=== PATIENT | male | born 1950 | race Caucasian/White ===

== ENCOUNTER → 2019-11-13 07:53 | Outpatient (CLI) | payer MEDICARE, SELFPAY ==
--- NOTE | 2019-11-13 | DI.RAD.S_ITS ---
PROCEDURE: XR KNEE RT 3V INDICATIONS: RIGHT KNEE PAIN TECHNIQUE: 3 views of the knee were acquired. COMPARISON: None. FINDINGS: Bones: No fractures or dislocations. No suspicious bony lesions. There is mild and lateral medial femorotibial joint space narrowing seen, with associated remodeling changes including subchondral sclerosis and osteophyte formation along the jointline. On the sunrise view, there is moderate patellofemoral joint space narrowing seen. Osteophyte formation can be seen along the margins of the patella. Soft tissues: There is a moderate joint effusion. No suspicious soft tissue calcifications. IMPRESSION: A moderate joint effusion is seen. Tricompartmental degenerative change is seen, which is most prominent involving the patellofemoral compartment. If it would be helpful for clinical management decision making, please consider a dedicated knee MRI for further evaluation (assuming that there is no contraindication). Dictated by: Barron Liu M.D. on 11/13/2019 at 8:33 Approved by: Barron Liu M.D. on 11/13/2019 at 8:34
== END ==
PROVIDERS: PCP Family Medicine; Referring Provider Family Medicine; Visit Provider Family Medicine
DX: M25.561 Pain in right knee (principal); M25.461 Effusion, right knee
CPT/HCPCS: 73562

== ENCOUNTER → 2020-01-28 11:54 | Outpatient (CLI) | payer MEDICARE, SELFPAY ==
--- NOTE | 2020-01-28 | DI.US.S_ITS ---
PROCEDURE: US ABDOMEN LIMITED INDICATIONS: ABNORMAL LFTS; AAA SCREEN TECHNIQUE: Real-time focused scanning was performed of the abdomen, with image documentation. COMPARISON: None. FINDINGS: The liver demonstrates normal size and echogenicity. Within the left lobe of the liver laterally, there is a target appearing lesion, with a hypoechoic rim that measures 1.9 x 1.4 x 1.9 cm. The main portal vein measures normal size at 1.3 cm and is patent, demonstrating hepatopetal flow. No findings of gallstones or sludge are seen. The gallbladder wall is not thickened, measuring 3 mm or less. No specific pericholecystic fluid is seen. The sonographic Swift sign is negative. There is no biliary dilatation, the common bile duct measures 2 mm. No significant pancreatic abnormality is seen on these images. The proximal aorta is not seen. The mid aorta measures 1.6 cm. The distal aorta measures 1.4 cm. The right common iliac artery measures 1.1 cm and the left common iliac artery measures 1.2 cm. IMPRESSION: There is a 1.9 cm target appearing mass within the left lobe of the liver. Metastatic disease is suspected. Please correlate with known patient history. For further evaluation, a dedicated liver MRI (without and with contrast) is suggested (assuming that there is no contraindication to MRI). Negative for abdominal aortic aneurysm. The gallbladder demonstrates a normal sonographic appearance. No biliary dilatation is seen. Dictated by: Barron Liu M.D. on 01/28/2020 at 13:47 Approved by: Barron Liu M.D. on 01/28/2020 at 13:48
== END ==
PROVIDERS: PCP Family Medicine; Referring Provider Family Medicine; Visit Provider Family Medicine
DX: Z13.6 Encounter for screening for cardiovascular disorders (principal); R79.89 Other specified abnormal findings of blood chemistry; R16.0 Hepatomegaly, not elsewhere classified
CPT/HCPCS: 76705

== ENCOUNTER → 2020-02-04 09:05 | Outpatient (CLI) | payer MEDICARE, SELFPAY ==
--- NOTE | 2020-02-04 | DI.MRI.S_ITS ---
PROCEDURE: MR ABDOMEN WO/W CON INDICATIONS: OTHER SPECIFIED DISEASE OF THE LIVER TECHNIQUE: Coronal HASTE, axial 2D FLASH in- and [id number]-arond; axial breath-hold T2 FSE. Dynamic axial VIBE during the administration of contrast; post-contrast coronal VIBE or 2D FLASH with fat saturation from the hepatic dome to the iliac crests. Optional diffusion weighted imaging and ADC may be performed. COMPARISON: [facility], , ABDOMEN LIMITED, 01/28/2020, 12:08. FINDINGS: Image quality: Excellent. Lung bases: No basal pleural effusions. Heart size is normal. Solid organs: Liver is normal in size and enhancement except within the left lateral hepatic segment approximately centered 2.2 cm leftward from the fissure for the falciform ligament where a 1.5 cm diameter slightly enhancing rounded structure can be seen without appreciable mass effect on adjacent structures. This cannot be accurately detected on T2 and diffusion-weighted imaging pulse sequences. It is best seen on early postcontrast fat suppressed T1 scanning series 13, image 35. Gallbladder appears normal . Biliary system is non dilated. Pancreas is normal in morphology. Spleen is normal in size and enhancement. No adrenal nodules. Both kidneys demonstrate normal size and enhancement, without hydronephrosis. Nodes and vessels: No retroperitoneal or mesenteric adenopathy by size criteria. Aorta and inferior vena cava are normal in size. Bowel and peritoneum: Unenhanced bowel loops are normal in caliber. No free fluid. Bones and soft tissues: No ventral hernias. Bone marrow is normal in overall signal. IMPRESSION: The rounded hepatic 1.5 cm subcapsular left lateral hepatic segment nodule shows homogeneous contrast enhancement and potentially could represent an atypical hemangioma. It is accurately seen by ultrasound scanning. Follow-up by ultrasound could be performed in 3 months, 3 additional months thereafter, and 6 months thereafter assuming stability of appearance over time. Alternatively, a tagged red blood cell hemangioma scan with SPECT imaging could be utilized at this time. A nuclear medicine PET-CT scan also could be utilized for more accurate characterization of the structure and possibly to detect alternative site of isotope uptake if this in fact were to represent a focus of hepatic metastatic disease. Dictated by: Leodan Joseph M.D. on 02/04/2020 at 10:44 Approved by: Leodan Joseph M.D. on 02/04/2020 at 10:55
== END ==
PROVIDERS: PCP Family Medicine; Referring Provider Family Medicine; Visit Provider Family Medicine
DX: K76.89 Other specified diseases of liver (principal)
CPT/HCPCS: 74183

== ENCOUNTER → 2020-06-01 10:17 | Outpatient (CLI) | payer MEDICARE, SELFPAY ==
[2020-06-01] MEDS: COVID-19 VACC, Ad26(JANSSEN)/PF 0.5 ML IM (10:26)
== END ==
PROVIDERS: PCP Family Medicine; Visit Provider Internal Medicine
DX: Z23 Encounter for immunization (principal)
CPT/HCPCS: 0031A; 91303

== ENCOUNTER → 2020-07-30 08:03 | Outpatient (CLI) | payer MEDICARE, SELFPAY ==
--- NOTE | 2020-07-30 | DI.US.S_ITS ---
PROCEDURE: US ABDOMEN COMPLETE INDICATIONS: LEFT LOBE LIVER MASS TECHNIQUE: Real-time scanning was performed of the abdominal and retroperitoneal organs, with image documentation. COMPARISON: [facility], MR, MR ABDOMEN WO/W CON, 02/04/2020, 9:30. [facility], US, US ABDOMEN LIMITED, 01/28/2020, 12:08. FINDINGS: Liver: Liver is normal in size. Within the left lobe of the liver, there is again seen a hypoechoic mass. On the current study, this measures 1.9 x 1.5 x 1.8 cm, which is unchanged from the prior when it measured 1.9 x 1.4 x 1.9 cm. A 6 mm nonshadowing hyperechoic lesion is seen within the left lobe medially. The main portal vein demonstrates normal size. Gallbladder: No findings of gallstones or sludge are seen. The gallbladder wall is not thickened, measuring 3 mm or less. No specific pericholecystic fluid is seen. The sonographic Swift sign is negative. Biliary ducts: Intrahepatic bile ducts are non-dilated. Extrahepatic bile duct caliber measures 5 mm. Normal is 6-7 mm or less in diameter, or 10 mm or less post-cholecystectomy. Pancreas: Visualized portions of the pancreas are sonographically normal. Spleen: The spleen is minimally enlarged, measuring 13.1 cm. Kidneys: Kidneys are normal in size and echotexture. Right kidney measures 11 cm long; left kidney measures 10.4 cm long. No hydronephrosis. No solid masses. Within the left mid kidney, there is a calcified vessel versus a nonobstructing stone seen that measures 1-2 mm. Aorta: Visualized aorta is normal in caliber at less than 3 cm. Iliacs: Proximal common iliac arteries are normal in caliber at less than 2.5 cm. IVC: Intrahepatic inferior vena cava is patent. Miscellaneous: No free abdominal fluid. IMPRESSION: There is a stable 1.9 cm hypoechoic mass seen within the liver. The stability since the prior ultrasound 01/28/2020 is reassuring for a benign process, although not diagnostic. Continued follow-up is recommended, with a dedicated ultrasound in approximately 6 months. Incidental note is made of: Likely 6 mm liver hemangioma Minimal splenomegaly Calcified vessel versus nonobstructing right kidney stone Dictated by: Barron Liu M.D. on 07/30/2020 at 8:46 Approved by: Barron Liu M.D. on 07/30/2020 at 8:51
== END ==
PROVIDERS: PCP Family Medicine; Referring Provider Family Medicine; Visit Provider Family Medicine
DX: K76.89 Other specified diseases of liver (principal)
CPT/HCPCS: 76700

== ENCOUNTER → 2021-09-29 10:40 | Outpatient (CLI) | payer MEDICARE, SELFPAY | PROVIDERS: PCP Family Medicine; Referring Provider Family Medicine; Visit Provider Family Medicine | DX: Z13.820 Encounter for screening for osteoporosis (principal); M85.88 Other specified disorders of bone density and structure, other site | CPT/HCPCS: 77080 ==

== ENCOUNTER → 2021-10-14 10:34 | Outpatient (CLI) | payer MEDICARE, SELFPAY ==
[2021-10-14 11:12] LABS: Add Manual Diff / Slide Review NO; Basophils Absolute Auto 100 /uL (0-100); Basophils Percent Auto 1.1 % (0-2); Eosinophils Absolute Auto 200 /uL (0-450); Eosinophils Percent Auto 2.3 % (2-4); Hematocrit 36.2 % (41-53); Hemoglobin 12.8 g/dL (13.5-17.5); Lymphocytes Absolute Auto 900 /uL (1100-4500); Lymphocytes Percent Auto 10.5 % (25-40); Mean Corpuscular HGB Conc 35.3 % (30-36); Mean Corpuscular Hemoglobin 34.5 PG (26-34); Mean Corpuscular Volume 97.9 fL (80-100); Monocytes Absolute Auto 900 /uL (0-900); Monocytes Percent Auto 11.1 % (3-14); Neutrophils Absolute Auto 6200 /uL (1500-7000); Platelet Count 166 X10^3/uL (150-400); White Blood Cell Count 8.2 X10^3/uL (4.5-11.0)
[2021-10-14 11:13] LABS: INR 1.4 (0.9-1.3); Prothrombin Time 15.4 SECONDS (10.1-12.7)
[2021-10-14 14:23] LABS: Alanine Aminotransferase 37 IU/L (<50); Albumin 3.5 g/dL (3.5-5.0); Albumin Globulin Ratio 0.8 (1.0-2.8); Alkaline Phosphatase 110 U/L (38-126); Aspartate Aminotransferase 64 IU/L (17-59); BUN Creatinine Ratio 19.3 (6-22); Bilirubin Total 1.5 mg/dL (0.2-1.3); Blood Urea Nitrogen 23 mg/dL (9-20); Calcium 8.5 mg/dL (8.4-10.2); Carbon Dioxide 25 mmol/L (22-32); Chloride 108 mmol/L (98-107); Estimated Glomerular Filt Rate > 60 mL/min (>60); Globulin 4.3 g/dL (1.7-4.1); Glucose 106 mg/dL (80-110); HEMOLYSIS < 15 (0-50); Potassium 3.8 mmol/L (3.4-5.1); Sodium 138 mmol/L (137-145); Total Protein 7.8 g/dL (6.3-8.2)
== END ==
PROVIDERS: PCP Family Medicine; Referring Provider Internal Medicine Gastroenterology; Visit Provider Internal Medicine Gastroenterology
DX: C22.0 Liver cell carcinoma (principal)
CPT/HCPCS: 36415; 80053; 85025; 85610

== ENCOUNTER → 2023-02-21 16:42 | Outpatient (ROUT) | payer MEDICARE, SELFPAY ==
[2023-02-21 17:14] LABS: Appearance Urine UA CLEAR; Bilirubin Urine UA NEGATIVE (NEGATIVE); Color Urine UA YELLOW; Glucose Urine UA NEGATIVE (Negative); Ketones Urine UA NEGATIVE (NEGATIVE); Leukocyte Esterase Urine UA 2+ (NEGATIVE); Nitrite Urine UA NEGATIVE (Negative); Occult Blood Urine UA 2+ (Negative); Protein Urine UA 2+ (Negative); Specific Gravity Urine UA 1.025 (1.000-1.035); Urobilinogen Urine UA 0.2 E.U./dL (0.2); pH Urine UA 5.5 (4.5-8.0)
[2023-02-21 17:36] LABS: Bacteria Urine Few (2-10); Culture Indicated Urine Specimen Cultured; Hyaline Casts Urine 5-10/LPF; RBC Urine 5-10/HPF (0-5/HPF); Squamous Epithelial Cell Urine 0-1 /HPF (0-5/HPF); WBC Urine 30-100/HPF (0-5/HPF); White Blood Cell Casts Urine 1-5/LPF
== END ==
PROVIDERS: PCP Family Medicine; Visit Provider Urology
DX: N20.0 Calculus of kidney (principal)
CPT/HCPCS: 81001; 87086

== ENCOUNTER 2024-09-27 08:53 | Emergency (ER) | payer MEDICARE, SELFPAY ==
[2024-09-27] VITALS (9 sets, daily range): BP systolic 114–153; BP diastolic 75–88; PULSE 93–113; RESP 4–25; TEMP 36.5; O2SAT 86–98
--- NOTE | 2024-09-27 09:29 | DI.RAD.S_ITS ---
PROCEDURE: XR CHEST 1V INDICATIONS: altered mental status TECHNIQUE: One view of the chest was acquired. COMPARISON: Chest x-ray 08/22/2024 FINDINGS: Increased moderate right mid and lower hemithorax consolidation commonly representing a combination of pleural effusion, atelectatic change, alveolar opacification/consolidation, pneumonia or other process. Cannot exclude underlying right lung mass given the numerous, too numerous to count bilateral pulmonary nodules suspected metastases. Peribronchial thickening and patchy opacities left mid and lower hemithorax as well. Right-sided Port-A-Cath with distal tip distal superior vena cava. No gross pneumothorax. IMPRESSION: Increased right mid and lower hemithorax consolidation as discussed above. Diffuse metastases similar to the prior exam. Peribronchial thickening patchy opacities right greater than left progressed. Follow-up is needed. CT chest could be performed Dictated by: Andres Campoverde M.D. on 09/27/2024 at 11:06 Approved by: Andres Campoverde M.D. on 09/27/2024 at 11:26
--- NOTE | 2024-09-27 10:00 | EKG_ITS ---
[address] [address] Test Date: 2024-09-27 Pat Name: Man Judd Department: [facility] Room: Gender: Male [employer] Dancer: RAFAELA : 1950 Requested By: Order Number: [id number] Reading MD: Kamar Rose MD Measurements Intervals [place] Rate: 112 P: 52 WV: 140 QRS: 36 QRSD: 66 T: 54 QT: 328 QTc: 447 Interpretive Statements Sinus tachycardia Nonspecific T wave abnormality Electronically Signed On 09-27-2024 12:16:19 PDT by Kamar Rose MD
--- NOTE | 2024-09-27 10:29 | DI.CT.S_ITS ---
PROCEDURE: CT HEAD/BRAIN WO CON INDICATIONS: ams TECHNIQUE: Noncontrast 4.5 mm thick angled axial sections acquired from the foramen magnum to the vertex, with coronal and sagittal reformats. For radiation dose reduction, the following was used: automated exposure control, adjustment of mA and/or kV according to patient size. COMPARISON: None. FINDINGS: Image quality: Diagnostic. CSF spaces: Basal cisterns are patent. Small left subdural hematoma. Small right subdural hematoma, right subarachnoid hemorrhage. The ventricles are symmetric in size and shape. Brain: There is a small hemorrhagic parenchymal focus in the inferior left temporal lobe which is present on coronal image 23 of series 4 and axial image 9 of series 2. It measures approximately 1.1 x 2.1 x 1.1 cm. There is associated vasogenic edema. There is no significant mass effect on the left lateral ventricle. There is also a small left temporal subdural hematoma measuring 4 mm in thickness on axial image 14 of series 2. There is a small right temporal subdural hematoma which on image 13 of series 2 measures 0.6 cm. There is a small right frontal subdural hematoma which on image 11 of series 2 measures 1.0 cm focally. There is associated subarachnoid hemorrhage subjacent to the subdural hematoma. There is cerebral volume loss, with resultant ventricular and sulcal prominence. There are periventricular and deep white matter chronic small vessel ischemic changes. There is intracranial internal carotid artery atherosclerosis. Skull and face: There is a right-sided skull fracture which involves the right mastoids. Reference image 9 of series 3. It extends to the right lateral temporal occipital region. Reference image 13 of series 3. Sinuses: Visualized sinuses and mastoids are clear. IMPRESSION: 1. There is definite evidence of significant intracranial trauma. 2. There is a nondisplaced right skull fracture which involves the right mastoids and posterior lateral temporal occipital region. 3. There are 3 focal areas of small subdural hematoma, left temporal and right temporal and right frontal. 4. Small subarachnoid hemorrhage in the right frontal region. 5. Small left temporal parenchymal hematoma. Comment: Findings were discussed with Dr. Wilcox on 09/27/2024 at 1103 hours Dictated by: Canelo Crews M.D. on 09/27/2024 at 10:56 Approved by: Canelo Crews M.D. on 09/27/2024 at 11:06
[2024-09-27 10:32] LABS: Add Manual Diff / Slide Review NO; Hematocrit 27.7 % (41-53); Hemoglobin 9.0 g/dL (13.5-17.5); Lymphocytes Absolute Auto 200 /uL (1100-4500); Mean Corpuscular HGB Conc 32.4 % (30-36); Mean Corpuscular Hemoglobin 26.3 PG (26-34); Mean Corpuscular Volume 81.1 fL (80-100); Platelet Count 228 X10^3/uL (150-400)
[2024-09-27 10:41] LABS: Lactate (Lactic Acid) 1.5 mmol/L (0.7-2.1)
[2024-09-27 10:43] LABS: Alanine Aminotransferase 25 IU/L (<50); Albumin 3.0 g/dL (3.5-5.0); Albumin Globulin Ratio 1.0 (1.0-2.8); Alkaline Phosphatase 295 U/L (38-126); Ammonia (NH3) < 9 umol/L (9-30); Blood Urea Nitrogen 26 mg/dL (9-20); Calcium 8.6 mg/dL (8.4-10.2); Carbon Dioxide 24 mmol/L (22-32); Chloride 100 mmol/L (98-107); Creatine Kinase 29 U/L (55-170); Estimated Glomerular Filt Rate 59 mL/min (>60); Ethanol (ETOH) < 10 mg/dL (<10); Globulin 3.1 g/dL (1.7-4.1); Glucose 168 mg/dL (70-99); HEMOLYSIS < 15 (0-50); Potassium 3.9 mmol/L (3.4-5.1); Sodium 134 mmol/L (137-145); Total Protein 6.1 g/dL (6.3-8.2)
[2024-09-27 10:44] LABS: INR 1.3 (0.9-1.3); Prothrombin Time 14.3 SECONDS (9.4-12.5)
[2024-09-27 10:47] LABS: Acetaminophen < 10 ug/mL (10-30); PTT Partial Thromboplastin Tim 25 SECONDS (25.1-36.5); Salicylate < 1.0 mg/dL (<20)
--- NOTE | 2024-09-27 10:50 | PC.NURSE ---
Pt sats dropping to 87% on RA. Placed on 2L per NC. Dr Wilcox notified.
[2024-09-27 10:53] LABS: Troponin I 0.065 ng/mL (0.01-0.034)
[2024-09-27 10:58] LABS: Procalcitonin 3.61 ng/mL (<0.5)
[2024-09-27 11:05] LABS: Anisocytosis 2+; Hypochromasia 1+
[2024-09-27 11:09] LABS: Base Excess VBG 0.8 mmol/L (0-4); HCO3 VBG 25 mmol/L (24-28); Oxygen Saturation VBG 89 % (70-75); PCO2 VBG 35.0 mmHg (45-50); PO2 VBG 53 mmHg (35-45); Total CO2 VBG 23 mmol/L (24-29); pH VBG 7.46 (7.33-7.43)
--- NOTE | 2024-09-27 11:09 | PC.NURSE ---
Pt placed in C collar per MD order.
--- NOTE | 2024-09-27 11:13 | DI.CT.S_ITS ---
PROCEDURE: CT CHEST ABD PEL WO CON INDICATIONS: trauma? TECHNIQUE: After the administration of oral contrast, 5 mm thick sections acquired from the lung apices to the symphysis pubis. 5 mm thick coronal and sagittal reformats acquired, with additional 7 mm coronal MIP reformats through the lungs. For radiation dose reduction, the following was used: automated exposure control, adjustment of mA and/or kV according to patient size. COMPARISON: No prior CT chest for comparison. Comparison can be made to prior chest x-ray 08/22/2024. FINDINGS: Image quality: Diagnostic. Some images are limited by beam hardening artifacts, patient motion or other artifacts. CHEST: Numerous, too numerous to count bilateral pulmonary nodules, metastases measuring up to 2.5 cm in the left lower lobe posterior basal similar to the prior chest x-ray. Increased large right pleural effusion with associated compressive atelectatic changes throughout the right middle lobe and right lower lobe near complete collapse right lower lobe. Peribronchial thickening and patchy opacities in the right upper lobe greater than left upper lobe and left lower lobe , some of which may be related expiratory result however bronchitis, viral infection or other process should be considered. Osteopenia and moderate degenerative changes of the thoracic spine with mild decreased height of several mid thoracic vertebral bodies. Right jugular central venous catheter with distal tip distal superior vena cava/right atrial junction. Moderate calcifications of the coronary arteries, aortic valve, mitral valve, aortic arch and descending aorta. Several moderately enlarged bilateral lower neck, mediastinal, bilateral paratracheal, anterior tracheal, lymph nodes suspected metastatic/neoplastic nodes. There is some narrowing of the right mainstem bronchus related to atelectasis and right pleural effusion. Pericardial effusion measuring up to 1 centimeter anteriorly-inferiorly. No pneumothorax. Heart size is within normal limits. There is some mass effect on the left atrium and shift of the mediastinum towards the left related to the large right pleural effusion. ABDOMEN: Numerous too numerous to count heterogeneous low-attenuation areas suspected metastases throughout the liver predominantly the right lobe. Surgical clips are noted presumed prior Whipple procedure. Moderate calcifications of the aorta and iliac vessels. Nonspecific wall thickening of the distal descending, sigmoid colon some of which related to partial nondistention although mild colitis or other process not excluded. Nonspecific presacral edema and bilateral mild pericolic gutter fluid. Mild left hydronephrosis and proximal hydroureter with a 4 millimeter diameter proximal left ureteral calculus. High attenuation in the inferior left renal calices suspected nonobstructing calculi. Moderately enlarged prostate gland and seminal vesicles. Nonspecific wall thickening distal rectum/anus. Abnormal appearance of the L1 and L2 vertebral bodies with heterogeneous sclerotic changes probable metastases with mild decreased height superior endplate of L2. Degenerative changes lower thoracic, lumbar spine. Spleen: Size is within normal limits. Adrenal Glands: No adrenal nodules. Stomach and Bowel: Normal colonic caliber, without significant wall thickening. IMPRESSION: Numerous findings as above including diffuse lung and liver presumed metastases. Left hydronephrosis proximal hydroureter with 4 millimeter proximal left ureteral calculus. Large right pleural effusion with shift of the mediastinum towards the left as discussed above. Other findings as above. Continued follow-up is needed Dictated by: Andres Campoverde M.D. on 09/27/2024 at 13:00 Approved by: Andres Campoverde M.D. on 09/27/2024 at 13:12
--- NOTE | 2024-09-27 11:14 | DI.CT.S_ITS ---
PROCEDURE: CT CERVICAL SPINE WO CON INDICATIONS: Trauma, transient alteration of consciousness per notes TECHNIQUE: Noncontrast 3 mm thick sections acquired from the skull base to the T4 level. Sagittal and coronal reformats were then constructed. For radiation dose reduction, the following was used: automated exposure control, adjustment of mA and/or kV according to patient size. COMPARISON: None. FINDINGS: Image quality: Excellent. Some images are limited by beam hardening artifacts. Mild levoscoliosis and straightening of the normal cervical lordosis. Mild to moderate degenerative changes of the cervical spine with disc space narrowing, osteophytes, uncovertebral and facet hypertrophic changes most notably at C3-4 on the left, C4-5 bilateral, C5-6 bilaterally, with neural foraminal narrowing. Mild central stenosis, the AP dimension of the canal measures approximately 9 millimeters at its narrowest at C5-6. No CT evidence of fracture or subluxation. Abnormal appearance of the chest with numerous too numerous to count metastases, pulmonary nodules, pleural effusions atelectatic changes and alveolar opacification, atelectasis or consolidation right lung partially imaged. IMPRESSION: No displaced fracture or traumatic subluxation. Degenerative changes as discussed above. If symptoms persist or worsen, or there is high clinical suspicion of cervical abnormality, MRI could be performed. Dictated by: Andres Campoverde M.D. on 09/27/2024 at 12:04 Approved by: Andres Campoverde M.D. on 09/27/2024 at 12:12
--- NOTE | 2024-09-27 11:19 | DI.CT.S_ITS ---
PROCEDURE: CT HEAD/BRAIN WO CON INDICATIONS: re-evaluate bleeding TECHNIQUE: Noncontrast 4.5 mm thick angled axial sections acquired from the foramen magnum to the vertex, with coronal and sagittal reformats. For radiation dose reduction, the following was used: automated exposure control, adjustment of mA and/or kV according to patient size. COMPARISON: [facility], CT, CT HEAD/BRAIN WO CON, 09/27/2024, 10:32. FINDINGS: Again noted is the right temporal fracture extending into the right mastoid air cells with associated fluid and adjacent extra-axial hemorrhage measuring up to 4 millimeters depth unchanged from the prior exam most likely subdural hemorrhage with some adjacent parenchymal contusion in the right temporal lobe unchanged. 4 millimeter depth left subdural hematoma unchanged. Right anterior frontal and right anterior temporal parenchymal contusions unchanged. No new hemorrhage no abnormal increase in size in hematomas. Suspected IMPRESSION: No significant change as discussed above. Continued follow-up is needed. Dictated by: Andres Campoverde M.D. on 09/27/2024 at 12:23 Approved by: Andres Campoverde M.D. on 09/27/2024 at 12:32
[2024-09-27 11:23] LABS: Thyroid Stimulating Hormone 0.757 uIU/mL (0.47-4.68)
[2024-09-27] MEDS: TET,DIPH,PERTUSS(ACELL),VAC/PF 0.5 ML SYRINGE IM (11:51)
--- NOTE | 2024-09-27 11:59 | ED.AMS ---
HPI - Altered Mental Status General Chief Complaint: Altered Mental Status Stated Complaint: Fluids pushing on Lungs, Cancer patient Time Seen by Provider: 09/27/24 10:12 Source: other Mode of arrival: Wheelchair History of Present Illness HPI narrative: Pleasant 74-year-old man who is actively undergoing therapy for metastatic lung cancer brought to the ER because his friend who is supposed to take him to some doctors appointments in [place] today found him somewhat confused when he arrived at the patient's home. The friend reports that it appears that the patient had slept the whole night on the couch which is not typical for him, and those he was brought in to the local ER for evaluation.. There was no signs of fall or injury and the patient also denies any pain or falls or injury. He has no concerns or complaints at this time. Related Data Allergies Allergy/AdvReac Type Severity Reaction Status Date / Time No Known Drug Allergies Allergy Unverified 09/27/24 09:16 Patient History Medical History Hepatitis C Family History Grandfather Stroke Social History marital status: unmarried,single household members: none lives independently: Yes occupational status: previously employed Exam Initial Vital Signs Initial Vital Signs: Vital Signs Temperature 97.7 F 09/27/24 09:16 Pulse Rate 113 H 09/27/24 09:16 Respiratory Rate 19 09/27/24 09:16 Blood Pressure 114/75 09/27/24 09:16 Pulse Oximetry 95 09/27/24 09:16 Oxygen Delivery Method Room Air 09/27/24 09:16 Const General: comfortable, No acute distress, No in distress, frail appearing and ill appearing (chronically) [facility] Head: normal to inspection, normocephalic, atraumatic, No abrasion, No Wallace's sign, No contusion, No hematoma, No laceration, No occipital foramen tenderness, No palpable skull fracture, No scalp lesion, No scalp tenderness and No periorbital ecchymosis Ears: TM's normal bilaterally and EAC's normal Nose: external nose normal Face and sinus: normal facial exam, sinuses nontender, face symmetric, no abrasions, no crepitus, no ecchymosis, no edema and no sinus tenderness Mouth: oral mucosae normal and No mouth trauma Eyes General: Yes appearance normal, both eyes and all related structures Pupils: PERRL EOM: EOM intact bilaterally Neck Neck: normal visual inspection, No anterior neck swelling, No midline deformity, No tender, No tracheal deviation and No submandibular swelling Chest Chest: normal inspection of the chest and normal palpation of entire chest wall Resp Effort & Inspection: normal respiratory effort and no respiratory distress Auscultation: clear to auscultation bilaterally Cardio Rate: regular rate Rhythm: regular rhythm Heart Sounds: S1 normal and S2 normal GI Palpation: soft and No tender Auscultation: normal bowel sounds Neuro General: patient alert, patient awake, oriented (all except time), moves all extremities, normal light touch, pain and propioception and CN's II-XI intact bilaterally Extrem General: normal to inspection, full ROM and No no clubbing, cyanosis or edema Course Course Course Narrative: As patient was initially evaluated his presentation was consistent with altered mental status/encephalopathy. There are absolutely no signs of trauma or injury on his exam and he did not complain of any pain. His neurological exam was unremarkable except for he was oriented to only place and person, not time. Surprisingly, there was found to be a skull fracture with multiple intracranial bleeds including subdural, subarachnoid, and intraparenchymal. Once this resulted I immediately began transfer process to Trauma Center and the patient was accepted by Dr. May from the [facility] emergency department shortly thereafter. At the same time I also ordered antibiotics to cover his skull fracture prophylactically. And I ordered trauma CT scans of his neck and trunk to evaluate for any other injuries. He was transferred by air in stable hemodynamic and neurologic condition when he left the hospital. Orders Ordered: ED Orders 09/27/24 09:29 XR chest 1V Stat EKG-12 Lead Stat 09/27/24 10:20 Acetaminophen Stat Ammonia (NH3) Stat Complete Blood Count AUTO DIFF Stat Comprehensive Metabolic Panel Stat Ethanol (ETOH) Stat Lactate (Lactic Acid) Stat Osmolality, Serum Stat PTT Partial Thromboplastin Amari Stat Procalcitonin Stat Prothrombin Time INR Stat Salicylate Stat Thyroid Stimulating Hormone Stat Troponin & CK Cardiac Panel Stat 09/27/24 10:28 Urine Drug Screen, Rapid Stat 09/27/24 10:29 CT head/brain wo con Stat 09/27/24 10:41 Venous Blood Gas STAT 09/27/24 11:05 Venous Blood Gas Routine 09/27/24 11:13 CT chest abd pel wo con Stat 09/27/24 11:14 CT cervical spine wo con Stat 09/27/24 11:19 CT head/brain wo con Stat Discontinued Medications Diphtheria/Tetanus/Acell Pertussis (Tet,Diph,Pertuss(Acell),Vac/Pf 0.5 Ml Syringe) 0.5 ml IM .ONCE ONE Stop: 09/27/24 11:14 Last Admin: 09/27/24 11:51 Dose: 0.5 ml Documented By: Vital Signs Vital signs: Vital Signs - 8 hr 09/27/24 09:16 09/27/24 09:56 09/27/24 09:56 Temperature 97.7 F Pulse Rate 113 H 108 H Respiratory Rate 19 Blood Pressure 114/75 142/75 H Pulse Oximetry 95 92 Oxygen Delivery Method Room Air Oxygen Flow Rate 09/27/24 10:00 09/27/24 10:00 09/27/24 10:30 Temperature Pulse Rate 109 H 100 H Respiratory Rate 22 4 L Blood Pressure 137/78 Pulse Oximetry 91 90 L Oxygen Delivery Method Room Air Oxygen Flow Rate 09/27/24 10:30 09/27/24 10:44 09/27/24 10:44 Temperature Pulse Rate 101 H Respiratory Rate 22 Blood Pressure 135/80 153/88 H Pulse Oximetry 86 L 94 Oxygen Delivery Method Nasal Cannula Oxygen Flow Rate 2 09/27/24 11:00 09/27/24 11:00 09/27/24 11:31 Temperature Pulse Rate 93 H 94 H Respiratory Rate 20 Blood Pressure 137/79 Pulse Oximetry 98 Oxygen Delivery Method Oxygen Flow Rate 09/27/24 11:32 09/27/24 11:32 Temperature Pulse Rate 94 H Respiratory Rate 14 Blood Pressure 153/86 H Pulse Oximetry 98 Oxygen Delivery Method Oxygen Flow Rate MDM - Altered Mental Status Differential Diagnosis Differential diagnosis: Likely altered mental status, delirium and subarachnoid hemorrhage Lab Data 09/27/24 10:20 09/27/24 10:20 Labs: Lab Results 09/27/24 09/27/24 09/27/24 Range/Units 10:20 10:20 11:05 WBC 12.9 H (4.5-11.0) X10^3/uL RBC 3.41 L (4.5-5.9) X10^6/uL Hgb 9.0 L (13.5-17.5) g/dL Hct 27.7 L (41-53) % MCV 81.1 (80-100) fL MCH 26.3 (26-34) PG MCHC 32.4 (30-36) % RDW 23.1 H (11.6-14.8) % Plt Count 228 (150-400) X10^3/uL Neut % (Auto) 91.4 H (50-75) % Lymph % (Auto) 1.7 L (25-40) % [place] % (Auto) 6.6 (3-14) % Eos % (Auto) 0.1 L (2-4) % Baso % (Auto) 0.2 (0-2) % Neut # (Auto) 85160 H (6912-4852) /uL Lymph # (Auto) 200 L (0679-5751) /uL [place] # (Auto) 900 (0-900) /uL Eos # (Auto) 0 (0-450) /uL Baso # (Auto) 0 (0-100) /uL Platelet Estimate Adequate on smear RBC Morphology See below Hypochromasia 1+ H Anisocytosis 2+ H PT 14.3 H (9.4-12.5) SECONDS INR 1.3 (0.9-1.3) APTT 25 L (25.1-36.5) SECONDS VBG pH 7.46 H (7.33-7.43) VBG pCO2 35.0 L (45-50) mmHg VBG pO2 53 H (35-45) mmHg VBG HCO3 25 (24-28) mmol/L VBG Total CO2 23 L (24-29) mmol/L VBG O2 Saturation 89 H (70-75) % VBG Base Excess 0.8 (0-4) mmol/L FiO2 % 28.0 % % Sodium 134 L (137-145) mmol/L Potassium 3.9 (3.4-5.1) mmol/L Chloride 100 (98-107) mmol/L Carbon Dioxide 24 (22-32) mmol/L BUN 26 H (9-20) mg/dL Creatinine 1.29 H (0.66-1.25) mg/dL Estimated GFR 59 L (>60) mL/min BUN/Creatinine Ratio 20.2 (6-22) Glucose 168 H (70-99) mg/dL Lactate 1.5 (0.7-2.1) mmol/L Calcium 8.6 (8.4-10.2) mg/dL Total Bilirubin 0.7 (0.2-1.3) mg/dL AST 51 (17-59) IU/L ALT 25 (<50) IU/L Alkaline Phosphatase 295 H (38-126) U/L Ammonia < 9 L (9-30) umol/L Total Creatine Kinase 29 L (55-170) U/L Troponin I 0.065 H (0.01-0.034) ng/mL Total Protein 6.1 L (6.3-8.2) g/dL Albumin 3.0 L (3.5-5.0) g/dL Globulin 3.1 (1.7-4.1) g/dL Albumin/Globulin Ratio 1.0 (1.0-2.8) Procalcitonin 3.61 H (<0.5) ng/mL TSH 0.757 (0.47-4.68) uIU/mL Salicylates < 1.0 (<20) mg/dL Acetaminophen < 10 (10-30) ug/mL Ethyl Alcohol < 10 Cancelled (<10) mg/dL ECG Data Interpretation: sinus tach 112. Discharge Plan Departure Patient Disposition: [facility] Clinical Impression: Intracranial hemorrhage, Skull fracture Referrals: Sergo Cook MD [Primary Care Provider, [facility]]
[2024-09-27] MEDS: cefTRIAXone 2,000 MG in SODIUM CHLORIDE 0.9% 100 ML 200 MG IV (12:08)
[2024-09-30 15:41] LABS: Osmolality, Serum 287 mOsmol/kg (280-301)
== END 2024-09-27 12:37 | disposition short-term general hospital (02) ==
PROVIDERS: Emergency Provider Emergency Medicine; PCP Family Medicine
DX: I62.9 Nontraumatic intracranial hemorrhage, unspecified (principal); S02.91XA Unspecified fracture of skull, initial encounter for closed fracture; C34.90 Malignant neoplasm of unspecified part of unspecified bronchus or lung; Z23 Encounter for immunization; R00.0 Tachycardia, unspecified
CPT/HCPCS: 36415; 70450; 71045; 71250; 72125; 74176; 80053; 80320; 80329; 82140; 82550; 82805; 82962; 83605; 83930; 84145; 84443; 84484; 85025; 85610; 85730; 90471; 93005; 93010; 96365; 99285; 90715; G0480; J0696

== ENCOUNTER → 2024-10-29 10:59 | Outpatient (ROUT) | payer MEDICARE, SELFPAY ==
[2024-10-29 12:40] LABS: Add Manual Diff / Slide Review NO; Hematocrit 31.3 % (41-53); Hemoglobin 9.7 g/dL (13.5-17.5); Lymphocytes Absolute Auto 400 /uL (1100-4500); Mean Corpuscular HGB Conc 31.1 % (30-36); Mean Corpuscular Hemoglobin 25.0 PG (26-34); Mean Corpuscular Volume 80.5 fL (80-100); Platelet Count 94 X10^3/uL (150-400)
[2024-10-29 12:53] LABS: Alanine Aminotransferase 22 IU/L (<50); Albumin 2.3 g/dL (3.5-5.0); Albumin Globulin Ratio 1.0 (1.0-2.8); Alkaline Phosphatase 313 U/L (38-126); Blood Urea Nitrogen 47 mg/dL (9-20); Calcium 8.8 mg/dL (8.4-10.2); Carbon Dioxide 28 mmol/L (22-32); Chloride 98 mmol/L (98-107); Estimated Glomerular Filt Rate 58 mL/min (>60); Globulin 2.4 g/dL (1.7-4.1); Glucose 128 mg/dL (70-99); HEMOLYSIS < 15 (0-50); Potassium 4.5 mmol/L (3.4-5.1); Sodium 133 mmol/L (137-145); Total Protein 4.7 g/dL (6.3-8.2)
[2024-10-29 13:08] LABS: Anisocytosis 2+; Poikilocytosis 1+
== END ==
PROVIDERS: PCP Family Medicine; Visit Provider Family Medicine
DX: C22.1 Intrahepatic bile duct carcinoma (principal); C79.51 Secondary malignant neoplasm of bone; C77.8 Secondary and unspecified malignant neoplasm of lymph nodes of multiple regions
CPT/HCPCS: 80053; 80195; 80197; 82105; 85025; 86301